=== PATIENT | female | born 1985 | race Caucasian/White ===

== ENCOUNTER 2020-06-08 07:57 | Outpatient (CLI) | payer OTHER, SELFPAY ==
--- NOTE | ~2020-06-08 | US_ITS ---
US right upper quadrant DATE: 06/08/2020 08:47 INDICATION: Diarrhea TECHNIQUE: Real-time imaging of liver pancreas and gallbladder COMPARISON: None FINDINGS: No hepatic or pancreatic space-occupying mass lesion. Normal hepatopedal portal venous flow direction. No evidence of gallstones or gallbladder wall thickening or pericholecystic fluid collect ion. Negative sonographic Mon's sign. The common bile duct measures 6.5 mm, borderline or mildly enlarged. Recommend correlation with serum bilirubin level. Consider MRCP as clinically appropriate. IMPRESSION: Common bile duct measures 6.5 mm, borderline or mildly enlarged. Recommend correlation wi th serum bilirubin level. Consider MRCP as clinically appropriate Reviewed, dictated and finalized at [facility]. Reviewed, dictated and finalized at location [facility]. ROLLER IMPRESSION: Common bile duct measures 6.5 mm, borderline or mildly enlarged. Re commend correlation with serum bilirubin level. Consider MRCP as clinically shad ropriate
--- NOTE | ~2020-06-08 | XR_ITS ---
EXAMINATION: XR knee RT 3V DATE: 06/08/2020 08:24 INDICATION: Right knee pain TECHNIQUE: Three views of the right knee were obtained. COMPARISON: None. FINDINGS: Alignment is normal. No fracture or osteochondral lesion. Joint spaces are normal with no e rosions. No joint effusion/synovitis. Soft tissues are unremarkable. IMPRESSION: 1. No acute osseous abnormality. Reviewed, dictated and finalized at location A. ULATOR OPERATOR
--- NOTE | ~2020-06-08 | XR_ITS ---
EXAMINATION: XR knee LT 3V DATE: 06/08/2020 08:23 INDICATION: Left knee pain TECHNIQUE: Three views of the left knee were obtained. COMPARISON: None. FINDINGS: Alignment is normal. No fracture or osteochondral lesion. Joint spaces are normal with no e rosions. No joint effusion/synovitis. Soft tissues are unremarkable. IMPRESSION: 1. No acute osseous abnormality. Reviewed, dictated and finalized at location A. SCOURING VAT TENDER
== END 2020-06-08 07:58 | disposition home or self-care (01) ==
PROVIDERS: PCP Nurse Practitioner Psychiatric/Mental Health; Visit Provider Nurse Practitioner Psychiatric/Mental Health
DX: M25.561 Pain in right knee (principal); M25.562 Pain in left knee
CPT/HCPCS: 73562; 76705

== ENCOUNTER 2020-06-22 12:38 | Outpatient (CLI) | payer OTHER, SELFPAY ==
--- NOTE | ~2020-06-22 | US_ITS ---
EXAMINATION: US pelvic complete w TV EXAM DATE: 06/22/2020 13:05 INDICATION: Pelvic pain. TECHNIQUE: Pelvic transabdominal and transvaginal sonogram was performed. There are multiple graysca le and Doppler images available for interpretation. Comparison is made to prior examination from 07/30. FINDINGS: Uterus measures 8.2 x 4.9 x 6.0 cm, and is morphologically normal. Endometrial stripe kateryna sures 6 mm, within normal limits. There are nabothian cysts. There is no free pelvic fluid. Right adnexa: The ovary measures 2.8 x 1.7 x 2 cm and is morphologically normal. Ovarian vascular louann w confirmed. Left adnexa: The ovary measures 2.8 x 2.2 x 2.5 cm, is morphologically normal. Ovarian vascular flow confirmed. IMPRESSION: 1. Unremarkable pelvic ultrasound exam. Reviewed, dictated and finalized at location A. PLANNER
== END 2020-06-22 12:39 | disposition home or self-care (01) ==
LOC: CHSIMG 12:39
PROVIDERS: PCP Nurse Practitioner Psychiatric/Mental Health; Visit Provider Nurse Practitioner Psychiatric/Mental Health
DX: R10.2 Pelvic and perineal pain (principal)
CPT/HCPCS: 76830; 76856

== ENCOUNTER 2021-09-25 10:59 | Outpatient (CLI) | payer OTHER, SELFPAY | END 2021-09-25 11:00 | disposition home or self-care (01) | LOC: CHSIMG 11:02 | PROVIDERS: PCP Family Medicine; Visit Provider Registered Nurse | DX: E27.8 Other specified disorders of adrenal gland (principal) | CPT/HCPCS: 99199 ==

== ENCOUNTER 2021-09-29 06:48 | Outpatient (CLI) | payer OTHER, SELFPAY | END 2021-09-29 06:49 | disposition home or self-care (01) | LOC: CHSIMG 06:51 | PROVIDERS: PCP Family Medicine; Visit Provider Family Medicine | DX: E27.8 Other specified disorders of adrenal gland (principal) | CPT/HCPCS: 99199 ==

== ENCOUNTER 2022-07-03 08:12 | Outpatient (CLI) | payer OTHER, SELFPAY ==
--- NOTE | ~2022-07-03 | US_ITS ---
EXAMINATION: US abdomen complete DATE: 07/03/2022 08:37 INDICATION: Abdominal pain TECHNIQUE: Multiple grayscale and Doppler ultrasound images of the abdomen were obtained. COMPARISON: None FINDINGS: The abdominal aorta is normal in caliber measuring 2.6 cm proximally, 2.0 cm the mid aorta and taperi ng to 1.5 cm the distal aorta. The pancreatic head and body are normal in appearance. The pancreatic tail is not visualized. Liver has normal echogenicity and contour, with a smooth surface. No liver lesion identified. No intrahepatic biliary duct dilation suspected. Portal venous flow was seen in t he hepatopetal, normal direction and has normal Doppler waveform. The gallbladder is normal in appear ance. There is no cholelithiasis. The common bile duct measures 5 mm, which is normal. Sonographic M urphy sign was reported as negative by the computer numerical control programmer.Visualized portion of the proximal to mid infe rior vena cava is normal. There is normal renal contour and echogenicity bilaterally. The right kidne y measures 12.3 x 4.7 x 6.0 cm and the left 12.5 x 4.8 x 5.4 cm. There are no focal renal lesions id entified. There is no hydronephrosis. Normal spleen measuring 11.8 cm in maximal length. IMPRESSION: 1. Normal abdominal ultrasound. Reviewed, dictated and finalized at location [facility].
== END 2022-07-03 08:13 | disposition home or self-care (01) ==
LOC: CHSIMG 08:13
PROVIDERS: PCP Registered Nurse; Visit Provider Registered Nurse
DX: R10.9 Unspecified abdominal pain (principal)
CPT/HCPCS: 76700

== ENCOUNTER 2022-08-30 12:57 | Outpatient (CLI) | payer OTHER, SELFPAY ==
--- NOTE | ~2022-08-30 | XR_ITS ---
Left ankle Technique: AP, oblique, and lateral views were obtained. Clinical History: Sprain Findings: No acute fracture or dislocation is seen. Osseous alignment is anatomic. Ankle mortise and other visualized joint spaces are preserved. Soft tissues are otherwise unremarkable. Impression: Unremarkable left ankle. Reviewed, dictated and finalized at location . Impression: Unremarkable left ankle.
== END 2022-08-30 12:58 | disposition home or self-care (01) ==
LOC: CHSIMG 12:59
PROVIDERS: PCP Registered Nurse; Visit Provider Registered Nurse
DX: M25.572 Pain in left ankle and joints of left foot (principal)
CPT/HCPCS: 73610; 73630